=== PATIENT | female | born 1970 | race Caucasian/White ===

== ENCOUNTER → 2017-04-10 | Outpatient (CLI) | payer OTHER ==
--- NOTE | ~2017-04-10 | CR63 ---
[facility] A Service of [facility] & [facility] RADIOLOGY TEXT RESULTS PATIENT: CONY ALBERTS LOCATION: [facility] : 70 UNIT #: [id number] AGE: [address]: Marianela Messina MD SEX: F ORDER DR: [id number] [facility] [address], [place] [address] [id number] O MR#: [id number] Acc #: [id number] NAME: CONY ALBERTS : 1970 SEX: F STUDY DATE/TIME: 04/10/2017 16:57 UNIT: [facility] ROOM: STUDY DESCRIPTION: CR Chest 2 View Attending Physician: Marianela Messina M.D. Referring Physician: Marianela Messina M.D. Ordering Physician: Marianela Messina M.D. Primary Care Physician: Marianela Messina M.D. MEDICAL IMAGING REPORT This report is preliminary unless electronic signature is present EXAM Chest 2 views INDICATIONS Chest pain. TECHNIQUE PA and lateral views of the chest without comparison. FINDINGS Heart and mediastinal contours normal. Lungs are clear. No pleural effusion. IMPRESSION Negative chest radiograph. Dictated by... Zaki Merritt M.D. THIS IS AN ELECTRONICALLY VERIFIED REPORT Zaki Merritt M.D. at 04/11/2017 8:43 AM VINEET/kel TD: 04/11/2017 00:53 JOB #: [id number] MEDICAL IMAGING REPORT Page 1 of 1 COPY
== END | disposition home or self-care (01) ==
LOC: CRAD 16:38
DX: Z01.818 Encounter for other preprocedural examination (principal); R07.89 Other chest pain
CPT/HCPCS: 71020